=== PATIENT | male | born 1960 | race African-American/Black ===

== ENCOUNTER 2024-11-06 10:34 | Observation (INO) | payer OTHER ==
[2024-11-06] MEDS ORDERED: methylPREDNISolone NA SUCC 125 MG/2 ML VIAL ONE (11:22)
[2024-11-06] MEDS ORDERED: ALBUTEROL SO4 2.5/IPRATROPIUM 0.5 INH SOL 3 ML VIAL.NEB. NEB ONE (11:22)
[2024-11-06] MEDS: ALBUTEROL SO4 2.5/IPRATROPIUM 0.5 INH SOL 3 ML VIAL.NEB. NEB SCH ×2 (12:23→20:08)
[2024-11-06 12:53] LABS: BASO % 1.5 % (0-2.0); EOS % 1.4 % (0-4.5); HEMATOCRIT 25.8 % (35.4-49); HEMOGLOBIN 8.2 GM/dL (11.7-16.9); MEAN CELL VOLUME 96.9 fl (80-96); MEAN PLT VOLUME 7.8 fl (7.5-11.1); MONO % 11.4 % (3.8-10.2); NEUT % 76.7 % (42.8-82.8); PLATELET COUNT 189 10^3/uL (134-434); RBC 2.66 M/mm3 (4.00-5.60); RDW 17.9 % (11.9-15.9)
[2024-11-06 12:58] LABS: VENOUS BASE EXCESS 5.4 mmol/L (-2-2); VENOUS O2 SATURATION 39.5 % (70-80); VENOUS PCO2 62.5 mmHg (38-52); VENOUS PH 7.333 (7.310-7.410)
[2024-11-06 13:00] LABS: INR 1.08 (0.83-1.09); PROTHROMBIN TIME (PATIENT) 12.4 SEC (9.7-13.0)
[2024-11-06] MEDS: methylPREDNISolone NA SUCC 125 MG/2 ML VIAL IVPUSH ONE (13:00)
[2024-11-06 13:03] LABS: ACTIVATED PTT 33.8 SECONDS (25.2-36.5)
[2024-11-06 13:18] LABS: CHLORIDE 96 mmol/L (98-107); POTASSIUM 4.4 mmol/L (3.5-5.1); SODIUM 135 mmol/L (136-145)
[2024-11-06 13:20] LABS: ALBUMIN 2.9 g/dl (3.4-5.0); ANION GAP 9 mmol/L (4-13); BLOOD UREA NITROGEN 34.5 mg/dL (7-18); CALCIUM 8.8 mg/dL (8.5-10.1); CO2 31 mmol/L (21-32)
[2024-11-06 13:21] LABS: GLUCOSE,RANDOM 67 mg/dL (74-106)
[2024-11-06 13:23] LABS: SGOT/AST 11 U/L (15-37); SGPT/ALT 7 U/L (13-61)
[2024-11-06 13:24] LABS: CREATININE 8.7 mg/dL (0.55-1.3)
[2024-11-06 13:25] LABS: BILIRUBIN,TOTAL 0.4 mg/dL (0.2-1)
[2024-11-06 13:27] LABS: ALK PHOS 82 U/L (45-117)
[2024-11-06 17:01] VITALS: RESP 18
[2024-11-06] MEDS ORDERED: SODIUM CHLORIDE 250 ML IV PRN (17:07)
[2024-11-06] MEDS ORDERED: ALBUTEROL SO4 2.5/IPRATROPIUM 0.5 INH SOL 3 ML VIAL.NEB. NEB PRN (17:17)
[2024-11-06] MEDS: EPOETIN ALFA-EPBX 10,000 UNIT/ML VIAL IVPUSH ONE (17:56)
[2024-11-06] MEDS: HEPARIN NA (PORCINE) 5,000 UNITS/ML 1ML VIAL SQ SCH (22:48)
[2024-11-07] MEDS: methaDONE 80 MG, methaDONE 10 MG PO ONE (06:36)
[2024-11-07 08:49] VITALS: BP 133/55; PULSE 73; TEMP 98.1
[2024-11-07] MEDS: SEVELAMER CARBONATE 800 MG TAB (FP) PO SCH (09:17)
[2024-11-07] MEDS: ASPIRIN COATED 81 MG TABLET.EC PO SCH (09:17)
[2024-11-07] MEDS: predniSONE 20 MG TABLET (UD) PO SCH (09:17)
[2024-11-07] MEDS: PANTOPRAZOLE 40 MG TABLET PO SCH (09:17)
[2024-11-07] MEDS: amLODIPine BESYLATE 10 MG TABLET (FP) PO SCH (09:17)
[2024-11-07] MEDS: SODIUM ZIRCONIUM CYCLOSILICATE (LOKELMA) 5 GM PACKET PO SCH (09:18)
[2024-11-07 15:10] VITALS: BMI 24.4
== END 2024-11-07 14:35 | disposition home or self-care (01) ==
LOC: JER 10:34 → JERBED 14:49 → J5S 21:28
PROVIDERS: ADMIT Internal Medicine; ATTEND Internal Medicine
PROC: 3E0333Z Introduction of Anti-inflammatory into Peripheral Vein, Percutaneous Approach (ICD-10-PCS; principal; 2024-11-06)
PROC: 3E0F7SF Introduction of Other Gas into Respiratory Tract, Via Natural or Artificial Opening (ICD-10-PCS; 2024-11-06)
DX: J44.1 Chronic obstructive pulmonary disease with (acute) exacerbation (principal); J45.901 Unspecified asthma with (acute) exacerbation; E11.22 Type 2 diabetes mellitus with diabetic chronic kidney disease; I12.0 Hypertensive chronic kidney disease with stage 5 chronic kidney disease or end stage renal disease; N18.6 End stage renal disease; Z99.2 Dependence on renal dialysis; Z91.158 Patient's noncompliance with renal dialysis for other reason; D64.9 Anemia, unspecified; I25.10 Atherosclerotic heart disease of native coronary artery without angina pectoris; F17.200 Nicotine dependence, unspecified, uncomplicated; M54.59 Other low back pain; G89.29 Other chronic pain; M19.90 Unspecified osteoarthritis, unspecified site; F11.20 Opioid dependence, uncomplicated; Z86.19 Personal history of other infectious and parasitic diseases
CPT/HCPCS: 0241U-QW; 36415; 71045-TC-FY; 80053; 82803; 84484; 85025; 85610; 85730; 86850; 86900; 86901; 93005; 93010; 94640; 96374; 99285-25; G0378; Q5106